=== PATIENT | male | born 1980 | race Caucasian/White ===

== ENCOUNTER → 2018-04-13 08:43 | Outpatient (CLI) | payer OTHER ==
[2018-04-13 09:06] LABS: BASOPHILS 0.3 % (0-2); HEMATOCRIT 41.9 % (42.0-54.0); HEMOGLOBIN 14.7 g/dL (13.5-17.5); IMMATURE GRANULOCYTES 0.1 % (0-5); MCH 30.3 pg (26.0-34.0); MCHC 35.1 g/dL (31.0-37.0); MCV 86.4 fL (80.0-100.0); MEAN PLATELET VOLUME 10.9 fL (7.4-10.4); MONOCYTES 10.3 % (2-11); NEUTROPHILS 58.3 % (40-80); PLATELET COUNT 225 10x3/uL (130-400); RBC 4.85 10x6/uL (4.20-6.10); RDW 12.4 % (11.5-14.5); WBC 7.8 10x3/uL (4.8-10.8)
[2018-04-13 09:21] LABS: ALKALINE PHOSPHATASE 72 U/L (46-116); ALT (SGPT) 36 U/L (10-68); BILIRUBIN - TOTAL 0.43 mg/dL (0.2-1.3); CALC OSMOLALITY 277 mosm/kg (275-300); CALCIUM 9.5 mg/dL (8.5-10.1); CARBON DIOXIDE 30.3 mmol/L (21.0-32.0); CHLORIDE - SERUM 103 mmol/L (98-107); GLUCOSE 104 mg/dL (74-106); POTASSIUM - SERUM 4.4 mmol/L (3.5-5.1); PROTEIN - SERUM 7.9 g/dL (6.4-8.2); SODIUM 139 mmol/L (136-145); UREA NITROGEN 13 mg/dL (7-18); eGFR NON AFRICAN AMERICAN 88 mL/min (90-120)
[2018-04-13 10:08] LABS: ERYTHROCYTE SEDIMENTATION RATE 12 mm/hr (0-15)
== END | disposition home or self-care (01) ==
LOC: D.LAB 08:43
PROVIDERS: Internal Medicine Gastroenterology
DX: K51.90 Ulcerative colitis, unspecified, without complications (principal)

== ENCOUNTER → 2019-04-26 09:25 | Outpatient (CLI) | payer OTHER ==
[2019-04-26 09:50] LABS: HEMATOCRIT 43.9 % (42.0-54.0); HEMOGLOBIN 15.1 g/dL (13.5-17.5); LYMPHOCYTES 22.5 % (15-50); MCH 29.8 pg (26.0-34.0); MCHC 34.4 g/dL (31.0-37.0); MCV 86.6 fL (80.0-100.0); MEAN PLATELET VOLUME 10.3 fL (7.4-10.4); NEUTROPHILS 64.7 % (40-80); PLATELET COUNT 200 10x3/uL (130-400); RBC 5.07 10x6/uL (4.20-6.10); RDW 12.6 % (11.5-14.5); WBC 7.6 10x3/uL (4.8-10.8)
[2019-04-26 10:05] LABS: ALBUMIN 3.9 g/dL (3.4-5.0); ALKALINE PHOSPHATASE 78 U/L (46-116); ALT (SGPT) 35 U/L (10-68); CALC OSMOLALITY 275 mosm/kg (275-300); CALCIUM 9.2 mg/dL (8.5-10.1); CARBON DIOXIDE 32.5 mmol/L (21.0-32.0); CHLORIDE - SERUM 102 mmol/L (98-107); GLUCOSE 96 mg/dL (74-106); POTASSIUM - SERUM 4.5 mmol/L (3.5-5.1); PROTEIN - SERUM 7.5 g/dL (6.4-8.2); SODIUM 138 mmol/L (136-145); UREA NITROGEN 12 mg/dL (7-18); eGFR NON AFRICAN AMERICAN 88 mL/min (90-120)
[2019-04-26 11:22] LABS: ERYTHROCYTE SEDIMENTATION RATE 4 mm/hr (0-15)
== END | disposition home or self-care (01) ==
LOC: D.LAB 09:25
PROVIDERS: ATTEND Internal Medicine Gastroenterology
DX: K51.90 Ulcerative colitis, unspecified, without complications (principal)